=== PATIENT | male | born 1990 | race Caucasian/White ===

== ENCOUNTER 2019-03-02 08:46 | Emergency (ER) | payer OTHER ==
[2019-03-02] MEDS ORDERED: Sodium Chloride 0.9% 2.5 ML Syringe FLUSH PRN (09:01)
[2019-03-02] MEDS ORDERED: Sodium Chloride 0.9% 1,000 ML IV ONE (09:01)
[2019-03-02] MEDS ORDERED: Sodium Chloride 0.9% 10 ML Syringe FLUSH PRN (09:01)
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
[2019-03-02] MEDS ORDERED: Morphine 2 MG/ML Syringe IVPUSH ONE (10:03)
[2019-03-02] MEDS ORDERED: Ondansetron 4 MG/2 ML SDV IVPUSH ONE (10:03)
[2019-03-02] MEDS ORDERED: Ketorolac 30 MG/ML SDV IVPUSH ONE (10:03)
[2019-03-02 10:19] LABS: BLOOD UREA NITROGEN,BUN 10 mg/dL (7.0-18.0); CARBON DIOXIDE,CO2 28.8 mmol/L (21.0-32.0); CHLORIDE,CL 98 mmol/L (98-107); GLUCOSE RANDOM 107 mg/dL (74-106); LIPASE 129 U/L (73-393); POTASSIUM,K 3.9 mmol/L (3.5-5.1); SODIUM,NA 134 mmol/L (136-148)
[2019-03-02] MEDS ORDERED: Lidocaine 1% with EPINEPHrine 1:100,000 10 ML MDV INJECT ONE (10:38)
[2019-03-02] MEDS ORDERED: Bacitracin Oint 1 GM U/D Packet TOP ONE (10:38)
[2019-03-02] MEDS ORDERED: Lidocaine 1% with EPINEPHrine 1:100,000 20 ML MDV ONE (10:39)
[2019-03-02] MEDS ORDERED: Lidocaine 1% with EPINEPHrine 1:100,000 20 ML MDV INJECT ONE (10:40)
[2019-03-02] MEDS ORDERED: Sodium Chloride 0.9% 1,000 ML IV SCH (10:45)
[2019-03-02] MEDS ORDERED: Morphine 4 MG/ML Syringe IVPUSH ONE (12:13)
[2019-03-02] MEDS ORDERED: Amoxicillin/Clavulanate K 875-125 MG Tab PO ONE (12:20)
== END 2019-03-02 13:20 | disposition home or self-care (01) ==
LOC: MW.ED 08:46
DX: S02.85XA Fracture of orbit, unspecified, initial encounter for closed fracture (principal); S01.412A Laceration without foreign body of left cheek and temporomandibular area, initial encounter; V68.5XXA Driver of heavy transport vehicle injured in noncollision transport accident in traffic accident, initial encounter; Y92.488 Other paved roadways as the place of occurrence of the external cause
CPT/HCPCS: 12013; 36415; 70450; 70486; 71045; 72125; 80053; 80305; 80320; 81003; 83690; 84484; 85025; 85610; 93005; 96361; 96374; 96375; 96376; 99285; A9270; J2270; J2405; J7040; G0480